=== PATIENT | male | born 1980 | race Caucasian/White ===

== ENCOUNTER → 2023-08-10 06:34 | Day surgery (SDC) | payer BC, SELFPAY | LOC: GI 06:34 | PROVIDERS: ATTENDING PHYSICIAN Internal Medicine | DX: R13.10 Dysphagia, unspecified (principal); K44.9 Diaphragmatic hernia without obstruction or gangrene; K21.01 Gastro-esophageal reflux disease with esophagitis, with bleeding; K31.89 Other diseases of stomach and duodenum; K29.50 Unspecified chronic gastritis without bleeding | CPT/HCPCS: 43239; 88305; 88342 ==

== ENCOUNTER → 2023-12-18 06:39 | Day surgery (SDC) | payer BC, SELFPAY | LOC: GI 06:39 | PROVIDERS: ATTENDING PHYSICIAN Internal Medicine | DX: K21.00 Gastro-esophageal reflux disease with esophagitis, without bleeding (principal); K22.89 Other specified disease of esophagus; K44.9 Diaphragmatic hernia without obstruction or gangrene; R13.10 Dysphagia, unspecified | CPT/HCPCS: 43249; 43239; 88305 ==

== ENCOUNTER 2024-08-14 07:29 | Emergency (ER) | payer SELFPAY ==
[2024-08-14 07:31] VITALS: BP 142/76
[2024-08-14 07:47] VITALS: BMI 33.5
[2024-08-14 07:50] VITALS: BP 139/73
[2024-08-14 08:00] VITALS: BP 133/78
--- NOTE | 2024-08-14 08:18 | ED.GENMED ---
History of Present Illness
General
Chief Complaint: DVT/Possible Blood Clot
Source: patient
Exam Limitations: none
Time Seen by Provider: 08/14/24 08:05
Nursing documentation reviewed up to this point in time: agreed with
History of Present Illness
History of Present Illness:
44-year-old male past medical history of polycythemia vera presenting to the emergency department today with concerns of vague discomfort as well as minimal swelling to the right wrist and left holloway. Denies any history of specific clots does take
aspirin daily. Denies any chest pain shortness of breath nausea vomiting numbness weakness. Patient is concerned because due to his medical condition.
Review of Systems
Review of Systems
Allergies reviewed?: Yes
All Other Systems: ROS reviewed and negative except as documented in HPI and ROS
Phy Exam
Physical Exam
Physical Exam:
GENERAL: Alert , in no apparent distress
EYE: pupils equal and reactive
NECK: Supple, no significant adenopathy.
ENT: o/p clr, mmm.
CARDIAC: Regular rate and rhythm .
LUNGS: Clear breath sounds bilaterally, no acute respiratory distress, no wheezes/rales/rhonchi
ABDOMEN: Soft, without focal tenderness, no r/g, no cvat
NEUROLOGICAL: Alert and oriented, no focal neuro deficits
SKIN: Warm and dry, skin intact.
MUSCULOSKELETAL: Very vague trace edema to the right wrist as well as the left holloway. Normal distal pulses there is a slight ecchymosis to the right forearm and left holloway minimal tenderness good range of motion of all joint well perfused.
PSYCH: Normal and appropriate interaction.
Course
Orders/Labs/Results
Orders:
Orders
08/14/24 08:11
Venous Doppler Lwr Ext Left [US Periph Venous LOWER Ext LT] Urgent
Comment:
Reason For Exam: right arm swelling hx of Polycythemia vera
08/14/24 08:15
Venous Doppler Upr Ext Right [US Periph Venous UPPER Ext RT] Urgent
Comment:
Reason For Exam: right arm/left swelling hx of Polycythemia vera
Vital Signs
Initial and Last Documented VS:
Initial Vital Signs
Temp Pulse Resp BP Pulse Ox
98.6 F 60 18 142/76 100
08/14/24 07:31 08/14/24 07:31 08/14/24 07:31 08/14/24 07:31 08/14/24 07:31
Last Documented Vital Signs
Temp Pulse Resp BP Pulse Ox
98.6 F 60 18 133/78 100
08/14/24 07:31 08/14/24 07:31 08/14/24 07:31 08/14/24 08:00 08/14/24 07:31
MDM/Problems Addressed
MDM/Problems Addressed:
44-year-old male presenting to the emergency department today with concerns of vague discomfort and swelling to the left holloway and right wrist. Patient concern for clot due to his history of polycythemia vera. Ultrasound ordered for further
assessment otherwise neuro vascularly intact. Swelling is very minimal on examination. He denies any symptoms consistent with a PE no chest pain shortness of breath normal vital signs. Ultrasound performed without evidence of DVT. No evidence of
emergent pathology stable for discharge. Return precautions given.
*Critical Care Note
Total Time (30-74mins, 75-104mins- exclusive of procedures): Not Applicable
ED Attending Note
-
Portions of this chart may have been created with voice recognition software.� Occasional wrong word or��sound alike� substitutions may have occurred due to the inherent limitations of voice recognition software.
Discharge Plan
Departure
Patient Disposition: Home (Routine Discharge)
Date of Disposition: 08/14/24
Time of Disposition: 09:52
Patient with high blood pressure during this ER visit?: No
Condition: Good
Covid-19: Not Applicable
Discharge Problem:
Right wrist pain, Pain in left holloway
Prescriptions:
No Action
aspirin 81 mg Tablet,Delayed Release (Dr/Ec)
81 mg PO DAILY
Besremi
1 dose IM .ASDIRECTED
hydroxyurea
1 tab PO .ASDIRECTED
omeprazole
1 tab PO .ASDIRECTED
Referrals:
UNKNOWN - PT DOES,NOT KNOW [Family Provider] -
Activity Restrictions/Additional Instructions:
You came to the emergency department today with concerns of discomfort to your wrist and holloway. You had an ultrasound that did not show DVT. Please follow-up with the primary care doctor for ongoing symptoms. Return for any worsening, new or
concerning symptoms.
Interventions
Interventions:
*Risk Screen - Suicide Last Done: 08/14/24 07:31
*General Assessment Last Done: 08/14/24 07:31
*Neglect/Abuse Screening Last Done: 08/14/24 07:31
*ED- Fall Risk Assessment Last Done: 08/14/24 07:47
*ED COVID-19 Vaccine History Last Done: 08/14/24 07:47
ED- Cardiac Assessment Last Done: 08/14/24 07:48
ED- Pulmonary Assessment Last Done: 08/14/24 07:48
ED-Peripheral Vascular Assessment Last Done: 08/14/24 07:48
ED-Skin Assessment Last Done: 08/14/24 07:49
Discharge Date and Time
Print Language: SAO TOMEAN
== END 2024-08-14 10:17 | disposition home or self-care (01) ==
LOC: EMR 07:29
PROVIDERS: EMERGENCY PHYSICIAN Emergency Medicine
DX: M25.531 Pain in right wrist (principal); M79.662 Pain in left lower leg; D45 Polycythemia vera
CPT/HCPCS: 99284; 93971